=== PATIENT | male | born 1955 | race Caucasian/White ===

== ENCOUNTER 2020-03-04 13:08 | Emergency (ER) | payer MEDICAID ==
[2020-03-04 13:33] VITALS: BP 133/87; PULSE 113
--- NOTE | 2020-03-04 14:07 | EDM.PDOC ---
ED HPI GENERAL MEDICAL PROBLEM - General Chief Complaint: General Stated Complaint: BLOOD SUGARS WERE HIGH Time Seen by Provider: 03/04/20 13:45 Source of Information: Reports: Patient, Old Records, RN Notes Reviewed History Limitations: Reports: No Limitations - History of Present Illness INITIAL COMMENTS - FREE TEXT/NARRATIVE: Jack presents today with complaints of generalized abdominal pain that is aching off and on for the past few months and higher blood sugars then normal. He states his blood sugars are more often in the 200 or 300 range. He reports he probably has not been eating as well as he should. Jack also reports nausea off and on. He states he takes his metformin, glipizide and trulicity as directed. Jack denies constipation or diarrhea, fever, chills, vomiting or other concerns. - Related Data Allergies Allergy/AdvReac Type Severity Reaction Status Date / Time No Known Allergies Allergy Verified 03/04/20 13:33 Home Meds: Home Meds Losartan/Hydrochlorothiazide [Losartan-HCTZ 100-12.5 MG] 1 tab PO DAILY 12/19/14 [History] metFORMIN HCl [Metformin HCl] 1,000 mg PO BID 12/19/14 [History] Dulaglutide [Trulicity] 1.5 mg SQ ASDIRECTED 12/31/15 [History] glipiZIDE [Glipizide ER] 5 mg PO BID 12/31/15 [History] Past Medical History HEENT History: Reports: Hard of Hearing, Impaired Vision Cardiovascular History: Reports: High Cholesterol, Hypertension Gastrointestinal History: Reports: GERD Endocrine/Metabolic History: Reports: Diabetes, Type II, Obesity/BMI 30+ - Past Surgical History Head Surgeries/Procedures: Reports: None HEENT Surgical History: Reports: None, Tonsillectomy Cardiovascular Surgical History: Reports: None GI Surgical History: Reports: Hernia Repair/Other Endocrine Surgical History: Reports: None Dermatological Surgical History: Reports: None Social & Family History - Tobacco Use Smoking Status *Q: Former Smoker Used Tobacco, but Quit: Yes Month/Year Tobacco Last Used: 1997 - Caffeine Use Caffeine Use: Reports: Coffee, Tea - Recreational Drug Use Recreational Drug Use: No ED ROS GENERAL - Review of Systems Review Of Systems: See Below Constitutional: Reports: No Symptoms HEENT: Reports: No Symptoms Respiratory: Reports: No Symptoms Cardiovascular: Reports: No Symptoms Endocrine: Reports: High Glucose, Other (200 to 300s for several weeks.) GI/Abdominal: Reports: Abdominal Pain, Decreased Appetite, Nausea : Reports: No Symptoms Musculoskeletal: Reports: No Symptoms Skin: Reports: No Symptoms Neurological: Reports: No Symptoms Psychiatric: Reports: No Symptoms Hematologic/Lymphatic: Reports: No Symptoms Immunologic: Reports: No Symptoms ED EXAM, GENERAL - Physical Exam Exam: See Below Exam Limited By: No Limitations General Appearance: Alert, WD/WN, No Apparent Distress Eye Exam: Bilateral Eye: EOMI, Normal Inspection, PERRL Ears: Normal External Exam, Normal Canal, Hearing Grossly Normal, Normal TMs Nose: Normal Inspection, Normal Mucosa Throat/Mouth: Normal Inspection, Normal Lips, Normal Gums, Normal Oropharynx, Normal Voice, No Airway Compromise Head: Atraumatic, Normocephalic Neck: Normal Inspection, Supple, Non-Tender, Full Range of Motion. No: Lymphadenopathy (R), Lymphadenopathy (L) Respiratory/Chest: No Respiratory Distress, Lungs Clear, Normal Breath Sounds, No Accessory Muscle Use, Chest Non-Tender. No: Crackles, Rales, Rhonchi, Wheezing Cardiovascular: Normal Peripheral Pulses, Regular Rate, Rhythm, No Edema, No Gallop, No Murmur, No Rub Peripheral Pulses: 2+: Radial (L), Radial (R) GI/Abdominal: Normal Bowel Sounds, Soft, Non-Tender, No Organomegaly, No Distention, No Mass, Hernia (ventral hernia noted). No: Guarding, Rigid, Rebound Back Exam: Normal Inspection, Full Range of Motion. No: CVA Tenderness (R), CVA Tenderness (L) Extremities: Normal Inspection, Normal Range of Motion, Non-Tender, No Pedal E larissa, Normal Capillary Refill Neurological: Alert, Oriented, CN II-XII Intact, Normal Cognition, Normal Gait, Normal Reflexes, No Motor/Sensory Deficits Psychiatric: Normal Affect, Normal Mood Skin Exam: Warm, Dry, Intact, Normal Color, No Rash Lymphatic: No Adenopathy Course - Vital Signs Last Recorded V/S: Last Vital Signs Temp 36.7 C 03/04/20 13:33 Pulse 113 H 03/04/20 13:33 Resp 16 03/04/20 13:33 BP 133/87 03/04/20 13:33 Pulse Ox 97 03/04/20 13:33 - Orders/Labs/Meds Labs: Laboratory Tests 03/04/20 03/04/2003/04/20 Range/Units 14:20 14:20 15:47 WBC 11.0 (4.5-11.0) K/uL RBC 5.16 (4.30-5.90) M/uL Hgb 14.7 (12.0-15.0) g/dL Hct 43.7 (40.0-54.0) % MCV 85 (80-98) fL MCH 29 (27-31) pg MCHC 34 (32-36) % Plt Count 243 (150-400) K/uL Neut % (Auto) 73 H (36-66) % Lymph % (Auto) 18 L (24-44) % [place] % (Auto) 7 H (2-6) % Eos % (Auto) 2 (2-4) % Baso % (Auto) 0 (0-1) % Sodium 132 L (140-148) mmol/L Potassium 4.0 (3.6-5.2) mmol/L Chloride 94 L (100-108) mmol/L Carbon Dioxide 26 (21-32) mmol/L Anion Gap 16.0 H (5.0-14.0) mmol/L BUN 15 (7-18) mg/dL Creatinine 1.3 (0.8-1.3) mg/dL Est Cr Clr Drug Dosing 56.27 mL/min Estimated GFR (MDRD) 56 L (>60) Glucose 329 H (74-106) mg/dL Calcium 9.3 (8.5-10.1) mg/dL Total Bilirubin 1.4 H (0.2-1.0) mg/dL AST 14 L (15-37) U/L ALT 41 (12-78) U/L Alkaline Phosphatase 83 (46-116) U/L Total Protein 7.5 (6.4-8.2) g/dL Albumin 3.7 (3.4-5.0) g/dL Globulin 3.8 H (2.3-3.5) g/dL Albumin/Globulin Ratio 1.0 L (1.2-2.2) Amylase 85 (25-115) U/L Lipase 653 H (73-393) U/L Urine Color Yellow (YELLOW) Urine Appearance Cloudy A (CLEAR) Urine pH 5.0 (5.0-8.0) Ur Specific [place] 1.025 (1.008-1.030) Urine Protein 100 H (NEGATIVE) mg/dL Urine Glucose (UA) 500 H (NEGATIVE) mg/dL Urine Ketones Negative (NEGATIVE) mg/dL Urine Occult Blood Small H (NEGATIVE) Urine Nitrite Positive H (NEGATIVE) Urine Bilirubin Negative (NEGATIVE) Urine Urobilinogen 0.2 (0.2-1.0) EU/dL Ur Leukocyte Esterase Trace H (NEGATIVE) Urine RBC 0-5 (0-5) Urine WBC 10-20 H (0-5) Ur Epithelial Cells Not seen Amorphous Sediment Many Urine Bacteria Many Urine Mucus Not seen Patient lab work reviewed, all his questions answered. We will complete abdomen/pelvis CT without contrast for abdominal pain, elevated lipase, bili, glucose. - Radiology Interpretation Free Text/Narrative:: Abdomen and pelvis CT without contrast shows no acute findings. Lab work and CT results reviewed with patient. Current diet, food, sugary drink intake reviewed with patient. Positive reinforcement provided. Advised to cut sugar, soda pop from diet. Work on decreased carbohydrates, potatoes and sugars in diet. Increase water intake. Monitor blood sugar 3 times per day, not only in morning. Take current medications as directed. Follow up with Dr. Alamo as soon as able. If hyperglycemia persists then return to emergency room. Patient in agreement with plan. Departure - Departure Time of Disposition: 16:48 Disposition: Home, Self-Care 01 Condition: Good Clinical Impression: Hyperglycemia due to diabetes mellitus - Discharge Information Instructions: Hyperglycemia, [id number] Referrals: Fredy Alamo MD [Primary Care Provider] - Forms: ED Department Discharge Additional Instructions: High blood sugar Abdominal/pelvis CT negative for acute findings. Continue current medications. Work on diet. Stop use of root beer, decrease breads and noodles. Increase exercise. Follow up with Dr. Alamo for follow up in the next 7 to 10 days. Report to the emergency room for uncontrolled blood sugars or other concerns. Sepsis Event Note (ED) - Evaluation Sepsis Screening Result: No Definite Risk - Focused Exam Vital Signs: Vital Signs Temp Pulse Resp BP Pulse Ox 03/04/20 13:33 36.7 C 113 H 16 133/87 97 03/04/20 13:32 36.7 C 113 H 16 133/87 97 - Assessment/Plan Assessment:: Hyperglycemia due to diabetes mellitus Plan: High blood sugar Abdominal/pelvis CT negative for acute findings. Continue current medications. Work on diet. Stop use of root beer, decrease breads and noodles. Increase exercise. Follow up with Dr. Alamo for follow up in the next 7 to 10 days. Report to the emergency room for uncontrolled blood sugars or other concerns.
--- NOTE | 2020-03-04 16:17 | CRLCT ---
INDICATION: Abdominal pain, elevated lipase TECHNIQUE: CT abdomen and pelvis without contrast. COMPARISON: None FINDINGS: Lower chest: Coronary artery calcified plaque. Liver: Hepatic steatosis. Spleen: Unremarkable. Pancreas: Unremarkable. Gallbladder and bile ducts: Unremarkable. Kidneys: Unremarkable. No kidney or ureteral stones and no hydronephrosis. Adrenal glands: Unremarkable. GI tract: Unremarkable. Appendix is normal. Vascular structures: Unremarkable. Lymph nodes: Unremarkable. Miscellaneous: Unremarkable. No free air or significant free fluid. Pelvic Organs: Unremarkable. Bones: Unremarkable for age. IMPRESSION: Normal-appearing pancreas and peripancreatic tissues. Hepatic steatosis. Dictated by Lui Amaro MD @ 03/04/2020 4:15:43 PM Please note that all CT scans at this facility use dose modulation, iterative reconstruction, and/or weight-based dosing when appropriate to reduce radiation dose to as low as reasonably achievable. Dictated by: Lui Amaro MD @ 03/04/2020 16:15:51 (Electronically Signed)
== END 2020-03-04 16:55 | disposition home or self-care (01) ==
LOC: JP.ED 13:08
DX: E11.65 Type 2 diabetes mellitus with hyperglycemia (principal); E78.00 Pure hypercholesterolemia, unspecified; I10 Essential (primary) hypertension; E66.9 Obesity, unspecified; Z68.30 Body mass index [BMI] 30.0-30.9, adult; Z79.84 Long term (current) use of oral hypoglycemic drugs; Z79.899 Other long term (current) drug therapy; Z87.891 Personal history of nicotine dependence
CPT/HCPCS: 36415; 74176; 80053; 81001; 82150; 83690; 85025; 99283; 99285-25